=== PATIENT | female | born 1990 | race Two or more races ===

== ENCOUNTER 2019-11-28 12:36 | Emergency (ER) | payer OTHER ==
[~2019-11-28] VITALS: Ht 157.5 cm; Wt 71.7 kg
[2019-11-28] MEDS ORDERED: TUSNEL LIQUID178 ML PO (17:46)
[2019-11-28] MEDS ORDERED: ZITHROMAX500 MG PO (17:46)
== END 2019-11-28 17:50 | disposition home or self-care (01) ==
LOC: ER 12:36
DX: J06.9 Acute upper respiratory infection, unspecified (principal)

== ENCOUNTER 2023-07-19 | Emergency (ER) | payer OTHER ==
[~2023-07-19] VITALS: Ht 160 cm; Wt 78.9 kg
[~2023-07-19] MED LIST: TUSNEL LIQUID178 ML PO; ZITHROMAX500 MG PO
[2023-07-19] MEDS ORDERED: PRENA1 CHEW TA1.4 MG PO (00:16)
== END 2023-07-19 04:38 ==
LOC: ER
PROVIDERS: General Practice
DX: O20.8 Other hemorrhage in early pregnancy (principal); Z3A.13 13 weeks gestation of pregnancy

== ENCOUNTER 2024-01-04 14:06 | Outpatient (CLI) | payer OTHER ==
[~2024-01-04 14:06] MED LIST changes: +PRENA1 CHEW TA1.4 MG PO
== END 2024-01-04 16:14 | disposition home or self-care (01) ==
LOC: NST 14:06
PROVIDERS: ATTEND Obstetrics & Gynecology Maternal & Fetal Medicine
DX: Z34.83 Encounter for supervision of other normal pregnancy, third trimester (principal)

== ENCOUNTER 2024-01-04 14:30 | Inpatient (IN) | payer OTHER ==
[~2024-01-04] VITALS: Ht 157.5 cm; Wt 85.7 kg
[2024-01-05] MEDS ORDERED: OXYTOCIN 20 UNITS/500ML RL PIGGYBAG IV ONE (10:33)
[2024-01-05] MEDS ORDERED: OXYTOCIN 500 ML IV ONE (10:45)
[2024-01-05] MEDS ORDERED: RINGERS SOLUTION,LACTATED 1,000 ML IV SCH (10:45)
[2024-01-05] MEDS ORDERED: ERYTHROMYCIN BASE 1 GM TUBE OP ONE (11:15)
[2024-01-05] MEDS ORDERED: OXYTOCIN 20 UNITS/1000ML RL PIGGYBAG IV ONE (11:15)
[2024-01-05] MEDS ORDERED: CHLORHEXIDINE GLUCONATE 120 ML BOTTLE TOP ONE (11:15)
[2024-01-05] MEDS ORDERED: ERYTHROMYCIN BASE 1 GM TUBE OP SCH (13:30)
[2024-01-05] MEDS ORDERED: LIDOCAINE HCL 1% 200MG/20ML VIAL IJ SCH (13:30)
[2024-01-05] MEDS ORDERED: CHLORHEXIDINE GLUCONATE 120 ML BOTTLE TOP SCH (13:30)
[2024-01-05] MEDS ORDERED: OxyCODONE HCL/APAP UD (PERCOCET) PO PRN (13:30)
[2024-01-05] MEDS ORDERED: OXYTOCIN 20 UNITS/500ML RL PIGGYBAG IV SCH (13:45)
[2024-01-05] MEDS ORDERED: MAGNESIUM SULFATE IN WATER 0.04 GM/ML IV.SOLN IV SCH (13:45)
[2024-01-05 14:29] LABS: ABG PH 7.296 (7.35-7.45); ABG PO2 21.2 mmHg (80-100); ABG pCO2 48.1 mmHg (35-45); BASE EXCESS -3.8 mmol/l; SaO2 27.8 %; Tco2 24.4 mmol/l; o2 21 %
[2024-01-05] MEDS ORDERED: KETOROLAC TROMETHAMINE 10 MG TABLET PO SCH (18:00)
[2024-01-06] MEDS ORDERED: BENZOCAINE/MENTHOL 90 ML BOTTLE TOP SCH (12:34)
== END 2024-01-07 13:48 | disposition home or self-care (01) | DRG 807 ==
LOC: OB/GYN 01-05 09:26 → LDR 01-05 09:26 → OB/GYN 01-05 13:54 → SURG 01-25 14:30
PROVIDERS: Obstetrics & Gynecology Maternal & Fetal Medicine; ADMIT Obstetrics & Gynecology; ATTEND Obstetrics & Gynecology
PROC: 10E0XZZ Delivery of Products of Conception, External Approach (ICD-10-PCS; principal; 2024-01-05)
PROC: 0KQM0ZZ Repair Perineum Muscle, Open Approach (ICD-10-PCS; 2024-01-05)
PROC: 0W8NXZZ Division of Female Perineum, External Approach (ICD-10-PCS; 2024-01-05)
PROC: 4A1HXCZ Monitoring of Products of Conception, Cardiac Rate, External Approach (ICD-10-PCS; 2024-01-05)
PROC: 3E033VJ Introduction of Other Hormone into Peripheral Vein, Percutaneous Approach (ICD-10-PCS; 2024-01-05)
DX: O70.1 Second degree perineal laceration during delivery (principal); Z37.0 Single live birth; Z3A.37 37 weeks gestation of pregnancy; Z20.822 Contact with and (suspected) exposure to COVID-19